=== PATIENT | female | born 1955 | race Caucasian/White ===

== ENCOUNTER 2023-12-31 13:22 | Outpatient (CLI) | payer MEDICARE, MEDICAID, SELFPAY ==
--- NOTE | 2023-12-31 13:45 | CT_ITS ---
FINAL REPORT CLINICAL HISTORY: SOLITARY NODULE OF LUNG FINDINGS: Axial CT images of the chest were obtained with contrast. Coronal reformatted images were also obtained. This study was performed with techniques to keep radiation doses as low as reasonably achievable, (ALARA). Individualized dose reduction techniques using automated exposure control or adjustment of mA and/or KV according to the patient''''s size were employed. There is no evidence of mediastinal or hilar mass or adenopathy.No axillary mass or adenopathy is identified. There are multiple bilateral pulmonary nodules measuring up to 9 mm in the posterior right upper lobe, best seen on image 31. Multiple other, less than 5 mm bilateral nodules are present. There is mild bibasilar atelectasis or scarring. No localized pulmonary inflammatory process is identified. Limited images of the upper abdomen reveal no mass or localized inflammatory process. There are postoperative changes of cholecystectomy into the stomach. IMPRESSION: 9 mm right upper lobe nodule. Recommend 3-month follow-up CT or PET/CT for further evaluation. Reviewed, Interpreted and Dictated by Charli Rodriguez III, MD Transcribed by Sandy Tavarez Authenticated and . [facility]
[2023-12-31] MEDS: IOPAMIDOL-370 (76%);100ML BOTTLE 70 ML IV (14:15)
[2023-12-31] MEDS: SODIUM CHLORIDE 0.9% 10ML SYR (RAD ONLY) 10 ML IV (14:15)
== END 2023-12-31 23:59 | disposition home or self-care (01) ==
PROVIDERS: PCP Nurse Practitioner Family; Visit Provider Nurse Practitioner Family
DX: R91.1 Solitary pulmonary nodule (principal)
CPT/HCPCS: 71260; Q9967

== ENCOUNTER 2024-01-06 10:44 | Outpatient (CLI) | payer MEDICARE, MEDICAID, SELFPAY ==
--- NOTE | 2024-01-06 10:48 | MM_ITS ---
PROCEDURE INFORMATION: Exam: MG Bilateral Screening 3D Mammography Exam date and time: 01/06/2024 10:48 AM Age: 68 years old Clinical indication: Screening examination TECHNIQUE: Imaging protocol: Bilateral Screening tomosynthesis and 2D mammography including computer-aided detection (CAD) when performed. COMPARISON: 1. MG MM DIG SCREENING MAMM BI W/CAD 01/06/2024 10:48 AM 2. MG ComboHD Unilateral Left 10/27/2022 9:03 AM FINDINGS: MAMMOGRAPHY: Breast composition: There are scattered areas of fibroglandular density. Mass: No suspicious masses. Architectural distortion: None. Calcifications: No suspicious calcifications. Asymmetric density: None. Skin thickening: None. Axillary adenopathy: None. IMPRESSION: No mammographic evidence of malignancy. Annual screening is recommended unless otherwise clinically indicated. ASSESSMENT: BI-RADS Category 1: Negative
== END 2024-01-06 23:59 | disposition home or self-care (01) ==
LOC: RAD 10:45
PROVIDERS: PCP Nurse Practitioner Family; Visit Provider Nurse Practitioner Family
DX: Z12.31 Encounter for screening mammogram for malignant neoplasm of breast (principal)
CPT/HCPCS: 77063; 77067

== ENCOUNTER 2024-01-20 14:29 | Outpatient (CLI) | payer MEDICARE, SELFPAY ==
--- NOTE | 2024-01-20 14:40 | MR_ITS ---
FINAL REPORT CLINICAL HISTORY: PAIN IN LEFT SHOULDER FINDINGS: Multi planar MR imaging of the left shoulder was performed. There is heterogeneous abnormal signal in the distal supraspinatus tendon. There are small defects identified in the supraspinatus tendon seen on image 15 of series 10, consistent with full-thickness tears. There is no abnormal fluid in the subacromial/subdeltoid bursa. The posterior glenoid labrum appears intact. There is abnormal linear signal through a globular anterior labrum consistent with an anterior labral tear. There is heterogeneous signal in the distal subscapularis tendon. The biceps tendon appears intact. There are moderate hypertrophic changes in the acromioclavicular joint. IMPRESSION: Partial full-thickness tears of the supraspinatus tendon. Tear through the anterior labrum. Moderate hypertrophic changes of the acromioclavicular joint. Reviewed, Interpreted and Dictated by Alton Villalba MD Transcribed by Angelica Benitez Authenticated and [facility]
== END 2024-01-20 23:59 | disposition home or self-care (01) ==
LOC: RAD 14:31
PROVIDERS: PCP Nurse Practitioner Family; Visit Provider Nurse Practitioner Family
DX: M25.512 Pain in left shoulder (principal)
CPT/HCPCS: 73221

== ENCOUNTER 2024-04-11 14:00 | Outpatient (RCR) | payer MEDICARE, MEDICAID, SELFPAY | END 2024-04-11 23:59 | disposition home or self-care (01) | LOC: OT 14:00 | PROVIDERS: Visit Provider Student in an Organized Health Care Education/Training Program | DX: M75.42 Impingement syndrome of left shoulder (principal) | CPT/HCPCS: 97014; 97110; 97140; 97166; G0283 ==